=== PATIENT | female | born 1980 | race Caucasian/White ===

== ENCOUNTER 2019-01-06 15:26 | Emergency (ER) | payer OTHER ==
[~2019-01-06] VITALS: Ht 177.8 cm; Wt 69.9 kg
[2019-01-06 15:36] VITALS: BP 125/72
--- NOTE | 2019-01-06 15:36 | NUR ---
PATIENT TRANSFERRED TO BED #6. [place] [facility] WITH PATIENT
[2019-01-06] MEDS ORDERED: KETOROLAC 30 MG/ML VIAL IM ONE (15:40)
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
[2019-01-06] MEDS ORDERED: BACITRACIN OINT 500 UNITS/GM PKT TP ONE ×2 (16:05→16:08)
[2019-01-06 16:18] VITALS: BP 125/72
--- NOTE | 2019-01-06 16:18 | NUR ---
Patient discharged with v/s stable. Written and verbal after care instructions given and explained. Patient alert, oriented and verbalized understanding of instructions. Ambulatory with steady gait. All questions addressed prior to discharge. ID band removed. Patient advised to follow up with PMD. Rx of MOTRRIN AND KEFLEX given. Patient educated on indication of medication including possible reaction and side effects. Opportunity to ask questions provided and answered.
== END 2019-01-06 16:18 | disposition home or self-care (01) ==
LOC: EDSEX 15:26 → MED 15:26
DX: L02.31 Cutaneous abscess of buttock (principal); Z02.89 Encounter for other administrative examinations
CPT/HCPCS: 96372; 99283; J1885